=== PATIENT | female | born 1970 | race Caucasian/White ===

== ENCOUNTER 2020-03-13 10:17 | Emergency (ER) | payer BC ==
[~2020-03-13] VITALS: Ht 157.5 cm; Wt 71.2 kg
[2020-03-13 11:11] LABS: STREPTOCOCCUS GRP A ANTIGEN NEGATIVE (NEGATIVE)
[2020-03-13 11:22] LABS: INFLUENZAE A&B ANTIGEN (RAPID) NEGATIVE (NEGATIVE)
[2020-03-13] MEDS ORDERED: HYDROCODONE/CHLORPHENIRAMINE 5 ML LIQCR PO ONE (11:30)
[2020-03-13 12:16] VITALS: BP 135/89
[2020-03-13] MEDS ORDERED: ACETAMINOPHEN 325 MG TAB PO ONE (12:30)
== END 2020-03-13 12:50 | disposition home or self-care (01) ==
LOC: ER 11:23
DX: U07.1 COVID-19 (principal); R50.9 Fever, unspecified; R05 Cough
CPT/HCPCS: 71045; 83518; 87070; 87400; 99283; U0002